=== PATIENT | male | born 1990 | race American Indian/Alaskan Native ===

== ENCOUNTER 2021-06-01 19:59 | Emergency (ER) | payer SELFPAY ==
[2021-06-01 20:03] VITALS: BP 122/84
[2021-06-01] MEDS ORDERED: IBUPROFEN 600 MG TAB PO ONE (21:39)
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
== END 2021-06-01 23:55 | disposition home or self-care (01) ==
LOC: ED 19:59
DX: G44.319 Acute post-traumatic headache, not intractable (principal); M62.838 Other muscle spasm; V49.49XA Driver injured in collision with other motor vehicles in traffic accident, initial encounter; X58.XXXA Exposure to other specified factors, initial encounter; Y93.89 Activity, other specified; Y92.89 Other specified places as the place of occurrence of the external cause; Y99.8 Other external cause status
CPT/HCPCS: 70450; 72125; 99283